=== PATIENT | female | born 1995 | race Caucasian/White ===

== ENCOUNTER 2020-08-31 16:40 | Inpatient (IN) | payer MEDICAID ==
[~2020-08-31] VITALS: Ht 170.2 cm; Wt 67.1 kg
[2020-08-31] MEDS ORDERED: IV NS 0.9% 1,000 ML BAG IV ONE (17:00)
[2020-08-31 17:04] LABS: EOSINOPHILS % (AUTO) 0.3 % (0.0-6.0); MEAN CORPUSCULAR VOLUME 101 fL (82-100); WHITE BLOOD COUNT (AUTO) 13.3 K/uL (4.3-11.0)
[2020-08-31 17:08] LABS: BASOPHILS % (AUTO) 0.2 % (0.0-2.0); LYMPHOCYTES # (AUTO) 1.5 K/uL (0.8-4.8); LYMPHOCYTES % (AUTO) 11.5 % (20.0-44.0); MEAN CORPUSCULAR HGB CONC 33 g/dl (31.0-36.0); MONOCYTES # (AUTO) 0.7 K/uL (0.1-1.30); MONOCYTES % (AUTO) 4.9 % (2.0-12.0); NEUTROPHILS # (AUTO) 11.1 K/uL (1.8-8.9); NEUTROPHILS % (AUTO) 83.1 % (43.0-81.0); PLATELET COUNT (AUTO) 391 K/uL (150-450)
[2020-08-31 17:09] LABS: CALCIUM, SERUM 7.7 mg/dL (8.5-10.1); CREATININE 0.7 mg/dL (0.6-1.3); POTASSIUM 3.5 mmol/L (3.5-5.1)
--- NOTE | 2020-08-31 17:10 | NUR ---
BIB [facility] FROM HOME,C/O ON & OFF VAGINAL BLEEDING X 2 DAYS,WEAK AND DIZZY,BLOOD SUGAR 125, HAD 1 MONTH AGO. ALERT AND ORIENTED X4. DENIES PAIN. IN ROOM AIR AND DENIES SOB. RESPIRATION REGULAR AND UNLABORED. WILL CONTINUE TO MONITOR THE PATIENT.
[2020-08-31 17:12] LABS: RED BLOOD CELL COUNT(AUTO) 1.58 MIL/uL (4.0-5.2)
[2020-08-31 17:13] LABS: HEMATOCRIT 16 % (33-45); HEMOGLOBIN 5.2 g/dL (11.5-14.8)
--- NOTE | 2020-08-31 17:30 | NUR ---
DR VALENZUELA SPEAKING WITH DR LOCKHART
--- NOTE | 2020-08-31 17:59 | NUR ---
CALLED NURSING SUP FOR TELE BED.
--- NOTE | 2020-08-31 17:59 | NUR ---
PAGED DR. CHAUDHRY
[2020-08-31] MEDS ORDERED: OXYTOCIN 10 UNIT/ML ML IV ONE (18:00)
[2020-08-31] MEDS ORDERED: METHYLERGONOVINE MALEATE 0.2 MG/ML AMPUL IM ONE (18:00)
[2020-08-31] MEDS: NS 0.9% IV SCH ×2 (18:03→19:01)
[2020-08-31] MEDS: OXYTOCIN IV SCH ×2 (18:03→19:01)
[2020-08-31] MEDS ORDERED: METHYLERGONOVINE MALEATE 0.2 MG/ML AMPUL ONE (18:06)
[2020-08-31 18:31] LABS: BAND % (MANUAL) 6 % (0.0-5.0); EOSINOPHILS % (MANUAL) 1 % (0-4); LYMPHOCYTES % (MANUAL) 18 % (16-48); MONOCYTES % (MANUAL) 7 % (0-11.0); NEUTROPHILS % (MANUAL) 68 (42-76)
[2020-08-31] MEDS ORDERED: ONDANSETRON HCL/PF 4 MG/2 ML VIAL IVP PRN (19:00)
[2020-08-31] MEDS ORDERED: ZOLPIDEM TARTRATE 5 MG TABLET PO PRN (19:00)
[2020-08-31] MEDS ORDERED: MAG HYDROX/AL HYDROX/SIMETH 30 ML UDC PO PRN (19:00)
[2020-08-31] MEDS ORDERED: Z GUARD REMEDY 2 OZ OINT TP PRN (19:00)
[2020-08-31] MEDS ORDERED: ACETAMINOPHEN 325 MG TABLET PO PRN (19:00)
[2020-08-31] MEDS ORDERED: MAGNESIUM HYDROXIDE 30 ML UDC PO PRN (19:00)
--- NOTE | 2020-08-31 19:05 | NUR ---
REC'D REPORT FROM VANESA MARTINEZ FOR FALGUNI
--- NOTE | 2020-08-31 20:11 | NUR ---
BLOOD INFUSION STARTED WITH VANESA LOU FOR TWO NURSE VERIFICATION OF BLOOD PRODUCTS
--- NOTE | 2020-08-31 20:26 | NUR ---
NO ADVERSE REACTIONS DURING FIRST 15 MIN OF BLOOD INFUSION. WILL CONTINUE TO MONITOR.
--- NOTE | 2020-08-31 21:03 | NUR ---
REPORT GIVEN TO GEMA ALEXIS FOR FALGUNI
[2020-08-31 21:30] VITALS: BP 105/49
--- NOTE | 2020-08-31 21:30 | NUR ---
RN ADMITTING NOTE PATIENT RECEIVED FOR SEAN ALEXIS VIA DOUGIE. PATIENT A/O X 4 PATIENT IS AMBULATORY WITH ASSISTANCE SHE IS STILL MILDLY WEAK. PATIENT IS ABLE TO MAKE NEEDS KNOWN. PATIENT JUST FINISHED 1 UNIT OF PRBC UPON ARRIVAL. PATIENT TOLERATES ROOM AIR. DOES NOT COMPLAIN OF DIZZINESS ANYMORE. STILL HAS SPOTTING/MILD VAGINAL BLEEDING. PATIENT HAS A RAC 18 G. PATIENT'S SKIN INTACT. PATIENT'S BELONGINGS INVENTORIED, ORIENTED PATIENT TO RM, PRIMARY NURSE, AND WHOLESALER. SAFETY MEASURES IN PLACE: CALL LIGHT WITHIN REACH, BED LOCKED IN LOWEST POSITION, SIDE RAILS UP. WILL MONITOR PATIENT CLOSELY.
--- NOTE | 2020-08-31 21:30 | NUR ---
PT TRANSFERRED TO TELE 3RD FLOOR 321-2 IN A GURNEY VIA 2 PERSON ASSIST IN STABLE CONDITION.
--- NOTE | 2020-08-31 23:30 | NUR ---
CALLED ER TO VERIFY HOW MANY UNITS OF PRBC TO BE GIVEN. DR. CHAUDHRY'S NOTES STATES 2 UNITS , ORDER IS FOR 1 QUANTITY. LEARNING COACHVANESA ESTRADA WILL GIVE AN UPDATE.
[2020-09-01] VITALS: BP 100/51
--- NOTE | 2020-09-01 01:54 | NUR ---
STARTED BLOOD TRANSFUSION: 1 UNIT OF PRBC.
[2020-09-01 02:09] VITALS: BP 91/42
--- NOTE | 2020-09-01 02:09 | NUR ---
15 MINS AFTER START OF BLOOD TRANSFUSION: NO ADVERSE EFFECTS, VITALS STABLE. BLOOD PRESSURE STILL ON THE LOW SIDE 91/42.
[2020-09-01 02:39] VITALS: BP 91/42
[2020-09-01 03:39] VITALS: BP 90/50
[2020-09-01 04:10] VITALS: BP 90/42
--- NOTE | 2020-09-01 04:10 | NUR ---
END OF BLOOD TRANSFUSION: BP 82/45. RECHECKED MANUALLY. 90/42. CHARGE NURSE AWARE. WILL INFUSE THE REST OF THE 500 ML NS PER CHARGE NURSE INSTRUCTIONS.
[2020-09-01 06:36] LABS: BASOPHILS # (AUTO) 0.1 K/uL (0.0-0.2); BASOPHILS % (AUTO) 0.5 % (0.0-2.0); EOSINOPHILS % (AUTO) 0.7 % (0.0-6.0); HEMATOCRIT 24 % (33-45); HEMOGLOBIN 7.9 g/dL (11.5-14.8); LYMPHOCYTES # (AUTO) 2.3 K/uL (0.8-4.8); MEAN CORPUSCULAR HGB CONC 33 g/dl (31.0-36.0); MEAN CORPUSCULAR VOLUME 96 fL (82-100); MONOCYTES # (AUTO) 0.7 K/uL (0.1-1.30); MONOCYTES % (AUTO) 6.9 % (2.0-12.0); NEUTROPHILS # (AUTO) 7.3 K/uL (1.8-8.9); NEUTROPHILS % (AUTO) 69.9 % (43.0-81.0); PLATELET COUNT (AUTO) 298 K/uL (150-450); RED BLOOD CELL COUNT(AUTO) 2.46 MIL/uL (4.0-5.2); WHITE BLOOD COUNT (AUTO) 10.5 K/uL (4.3-11.0)
[2020-09-01 06:44] LABS: CALCIUM, SERUM 6.9 mg/dL (8.5-10.1); CREATININE 0.6 mg/dL (0.6-1.3); MAGNESIUM 2.2 mg/dL (1.8-2.4); PHOSPHORUS 3.8 mg/dL (2.5-4.9); POTASSIUM 3.6 mmol/L (3.5-5.1)
[2020-09-01 07:06] LABS: THYROID STIMULATING HORMONE 2.123 uIU/mL (0.358-3.74)
--- NOTE | 2020-09-01 07:29 | NUR ---
RN CLOSING NOTE PATIENT IN BED, SLEEPING. EASILY AROUSED. PATIENT NOT IN ANY APPARENT DISTRESS. SAFETY MEASURES MAINTAINED. URINE IS OBSERVED TO BE PINK. ALL NEEDS MET AND ATTENDED. ALL ORDERS CARRIED OUT. ENDORSED TO DAY SHIFT NURSE FOR FALGUNI.
--- NOTE | 2020-09-01 07:30 | NUR ---
ALTERATIONS MANAGER NOTES PT IN BED, ASLEEP, EASY TO AROUSE, NO SIGN OF PAIN OR ANY DISCOMFORT, CALL LIGHT WITHIN REACH, KEPT WARM AND COMFORTABLE IN BED.
[2020-09-01] MEDS ORDERED: METHYLERGONOVINE MALEATE 0.2 MG/ML AMPUL IV SCH (09:00)
[2020-09-01] MEDS ORDERED: METHYLERGONOVINE MALEATE 0.2 MG/ML AMPUL IM ONE (14:00)
--- NOTE | 2020-09-01 18:33 | NUR ---
HEATING REPAIR TECHNICIAN NOTES PT IN BED, RESTING, DENIES PAIN, RESPIRATIONS NORMAL, CALL LIGHT WITHIN REACH, AMBULATES TO THE BATHROOM WITH STEADY GAIT, NO FURTHER HEAVY BLEEDING REPORTED, PT SEEN BY DR. MCDOWELL, AWAITING OBGYN CONSULT BY DR. GIL.
--- NOTE | 2020-09-01 19:30 | NUR ---
MACHINE ADJUSTER OPENING NOTES RECEIVED PATIENT IN BED, AWAKE, A&O X 4, ABLE TO MAKE NEEDS KNOWN. ON ROOM AIR TOLERATING WELL. NOT IN ANY FORM OF ACUTE DISTRESS NOTED. IV ACCESS ON RAC, PATENT AND FLUSHES WELL, NO REDNESS NOTED. PATIENT REPORTED VAGINAL SPOTTING IN MINIMAL AMOUNT. NO COMPLAINTS OF PAIN AT THIS TIME. SAFETY PRECAUTIONS OBSERVED: BED ON LOWEST LOCKED POSITION, KEPT SIDE RAILS UP X 2. CALL LIGHT AND BEDSIDE TABLE WITHIN REACH. WILL CONTINUE TO MONITOR.
[2020-09-01 20:00] VITALS: BP 104/57
[2020-09-02] VITALS: BP 104/57
[2020-09-02 04:00] VITALS: BP_SYST 100; BP_DIAS 49; BP_DIAS 59
[2020-09-02 06:15] LABS: BASOPHILS % (AUTO) 0.1 % (0.0-2.0); EOSINOPHILS % (AUTO) 1.3 % (0.0-6.0); HEMATOCRIT 23 % (33-45); HEMOGLOBIN 7.7 g/dL (11.5-14.8); LYMPHOCYTES # (AUTO) 2.1 K/uL (0.8-4.8); LYMPHOCYTES % (AUTO) 23.1 % (20.0-44.0); MEAN CORPUSCULAR HGB CONC 33 g/dl (31.0-36.0); MEAN CORPUSCULAR VOLUME 96 fL (82-100); MONOCYTES # (AUTO) 0.6 K/uL (0.1-1.30); NEUTROPHILS # (AUTO) 6.1 K/uL (1.8-8.9); NEUTROPHILS % (AUTO) 68.5 % (43.0-81.0); PLATELET COUNT (AUTO) 301 K/uL (150-450); RED BLOOD CELL COUNT(AUTO) 2.41 MIL/uL (4.0-5.2); WHITE BLOOD COUNT (AUTO) 8.9 K/uL (4.3-11.0)
--- NOTE | 2020-09-02 06:41 | NUR ---
FIXED ASSETS ACCOUNTANT CLOSING NOTES PATIENT IN BED, AWAKE, A&O X 4, ABLE TO MAKE NEEDS KNOWN. ON ROOM AIR TOLERATING WELL. NOT IN ANY FORM OF ACUTE DISTRESS NOTED. IV ACCESS ON RAC, PATENT AND FLUSHES WELL, NO REDNESS NOTED. STILL WITH VAGINAL SPOTTING IN MINIMAL AMOUNT. NO COMPLAINTS OF PAIN AT THIS TIME, ON TELE MONITOR SHOWING SR WITH BBB HR AT 71. SAFETY PRECAUTIONS OBSERVED AND MAINTAINED DURING THE SHIFT: BED ON LOWEST LOCKED POSITION, KEPT SIDE RAILS UP X 2. CALL LIGHT AND BEDSIDE TABLE WITHIN REACH. ALL NEEDS ATTENDED AND MET. WILL ENDORSE TO MORNING SHIFT NURSE FOR FALGUNI.
[2020-09-02 06:58] LABS: ALBUMIN 2.5 g/dL (3.4-5.0); BILIRUBIN,TOTAL 0.2 mg/dL (0.2-1.0); CALCIUM, SERUM 7.4 mg/dL (8.5-10.1); MAGNESIUM 2.2 mg/dL (1.8-2.4); PHOSPHORUS 4.2 mg/dL (2.5-4.9); POTASSIUM 3.3 mmol/L (3.5-5.1); TOTAL PROTEIN, SERUM 5.4 g/dL (6.4-8.2)
--- NOTE | 2020-09-02 07:50 | NUR ---
TELE/RN OPENING NOTES RECEIVED PATIENT ON BED SLEEPING EASILY AWAKEN BY NAME AND LIGHT TOUCH. ALERT AND ORIENTED X4. PATIENT IN ROOM AIR SATURATING WELL. PATIENT IN NO APPARENT RESPIRATORY DISTRESS NOTED. NO COMPLAINED OF PAIN NOTED AT THIS TIME. WILL CONTINUE TO MONITOR.
--- NOTE | 2020-09-02 07:53 | NUR ---
TELE/RN NOTES RECEIVED PATIENT WITH TELE MONITOR READING SINUS RHYTHM WITH WITH BBB 69 BPM.
[2020-09-02 08:56] VITALS: BP 92/56
[2020-09-02] MEDS ORDERED: POTASSIUM CHLORIDE 20 MEQ TAB.PRT.SR PO SCH (10:30)
[2020-09-02 12:00] VITALS: BP 104/58
[2020-09-02 16:03] VITALS: BP 98/59
--- NOTE | 2020-09-02 17:51 | NUR ---
RN NOTES PATIENT IS ALERT AND ORIENTED X4. PATIENT IS ON ROOM AIR SATURATION 96%. PATIENT IN NO APPARENT RESPIRATORY DISTRESS NOTED. SEEN AND EXAMINED BY MD WITH ORDERS MADE AND CARRIED OUT. ALL DUE MEDICATIONS WAS GIVEN. DISCHARGED INSTRUCTIONS WAS GIVEN AND PATIENT VERBALIZED UNDERSTANDING. PATIENT LEFT THE HOSPITAL IN MEDICALLY STABLE CONDITION. SINGING WAITER OR WAITRESS BY THE FATHER VIA PRIVATE CAR.
--- NOTE | 2020-09-03 08:35 | NUR ---
SS Consult requested over the weekend. Pt. has departed.
== END 2020-09-02 17:37 | disposition home or self-care (01) | DRG 564 ==
LOC: ER 16:45 → TELE 21:04
PROVIDERS: ADMIT Student in an Organized Health Care Education/Training Program; ATTEND Student in an Organized Health Care Education/Training Program
PROC: 30233N1 Transfusion of Nonautologous Red Blood Cells into Peripheral Vein, Percutaneous Approach (ICD-10-PCS; principal; 2020-08-31)
DX: O03.1 Delayed or excessive hemorrhage following incomplete spontaneous abortion (principal); E83.51 Hypocalcemia; D72.829 Elevated white blood cell count, unspecified; D63.8 Anemia in other chronic diseases classified elsewhere; Z20.822 Contact with and (suspected) exposure to COVID-19
CPT/HCPCS: 36415; 76856-TC; 80048-TC; 80053-TC; 80061-TC; 83735-TC; 84100-TC; 84443-TC; 84702-TC; 85025-TC; 86850-TC; 87081-TC; 97116-TC; 97530-TC; C9803; G0378; J2210; J2590; J7030; J7040; P9016